=== PATIENT | male | born 1975 | race Caucasian/White ===

== ENCOUNTER 2017-09-28 07:38 | Outpatient (CLI) | payer OTHER ==
[2017-09-28] MEDS ORDERED: ISOVUE-370 76%-LOCM 1 ML ONE (16:37)
== END 2017-09-28 07:39 | disposition home or self-care (01) ==
LOC: BICCT 07:38
PROVIDERS: ATTEND Internal Medicine Hematology & Oncology
DX: C20 Malignant neoplasm of rectum (principal); C78.00 Secondary malignant neoplasm of unspecified lung; K76.9 Liver disease, unspecified; I70.90 Unspecified atherosclerosis; K21.9 Gastro-esophageal reflux disease without esophagitis
CPT/HCPCS: 71260; 74177

== ENCOUNTER → 2017-10-04 | Day surgery (SDC) | payer OTHER ==
[2017-10-03 09:16] VITALS: BMI 32.5
[~2017-10-04] MED LIST: Bupivacaine/Epinephrine 0.25% 30 ML VIAL ONE; CEFAZOLIN/Water 2 GM/20 ML SYRINGE ONE; Fentanyl 100 MCG/2 ML VIAL ONE; Lidocaine 2% 10 ML INJ ONE; Midazolam HCl 2 mg/2 ml Vial ONE; Propofol 500 MG/50 ML VIAL ONE
--- NOTE | 2017-10-04 11:13 | OP ---
DATE OF PROCEDURE: 10/04/2017 PREOPERATIVE DIAGNOSIS: Locally invasive rectal cancer. POSTOPERATIVE DIAGNOSIS: Locally invasive rectal cancer. PROCEDURE: Tunneled central line subcutaneous port (MediPort), CT injectable. SURGEON: Aayush Lindsey M.D. ANESTHESIA: General. ESTIMATED BLOOD LOSS: Minimal. COMPLICATIONS: None. SPECIMEN: None. FINDINGS: Tip of catheter is at atriocaval junction. TECHNIQUE: The patient was taken to the operating room, placed supine on the table. After general a nesthetic was obtained, the bilateral chest and neck is prepped and draped in a sterile fashion. Loc al anesthetic infiltrated over the right internal jugular vein. Intrajugular vein cannulated using a 22-gauge finder needle followed by a Seldinger needle. Wire was passed under fluoroscopy guidance i nto the superior vena cava. A small isaiah was made at the ____ site. A separate 3-cm incision is mad e in the right upper chest. Subcutaneous pocket made below the lower incision. Tubing for the MediP ort tunneled from the inferior to the superior incision and suture sheath was placed over the wire in to the superior vena cava. The dilator and wire removed. The EndoCatch threaded into the sheath and the sheath is peeled away, the tip of the catheter is at the atriocaval junction. MediPort tubing i s cut to fit the MediPort at the lower incision, connected to the MediPort which is sewn to the chest wall in the subcutaneous pocket using Prolene suture. MediPort flushes and draws blood without diff iculties flushed with a heparin flush. All incisions were irrigated and closed using 3-0 Monocryl, 4 -0 Monocryl, and Dermabond. The patient was en route to recovery in stable condition. All instrumen t counts, needle counts and lap counts were correct.
--- NOTE | 2017-10-04 12:05 | RAD ---
PORTABLE CHEST 1 VIEW: Date: 10/04/17 Time: 1102 hours HISTORY: MediPort placement. FINDINGS/IMPRESSION: Comparison made with exam of 09/01/13. The heart size is normal. There is a right internal jugular Port-A-Cath with tip in the projection of the SVC. The lungs are well expanded with lobar consolidation, pneumothoraces, or pleural effusions. POS: [facility]
== END ==
LOC: SDC 08:06
PROVIDERS: ATTEND Surgery
PROC: 02HV33Z Insertion of Infusion Device into Superior Vena Cava, Percutaneous Approach (ICD-10-PCS; principal; 2017-10-04)
PROC: B518YZA Fluoroscopy of Superior Vena Cava using Other Contrast, Guidance (ICD-10-PCS; principal; 2017-10-04)
PROC: 0JH60WZ Insertion of Totally Implantable Vascular Access Device into Chest Subcutaneous Tissue and Fascia, Open Approach (ICD-10-PCS; principal; 2017-10-04)
DX: C20 Malignant neoplasm of rectum (principal); F17.210 Nicotine dependence, cigarettes, uncomplicated; Z79.899 Other long term (current) drug therapy
CPT/HCPCS: 71045; J1642; J2250; J2704; J3010

== ENCOUNTER 2018-01-24 08:00 | Inpatient (IN) | payer OTHER ==
[2018-01-31] MEDS ORDERED: cefOXitin 2 GM VIAL ONE (06:53)
[2018-01-31] MEDS ORDERED: Sodium Chloride 0.9% 100 ML ONE (06:54)
[2018-01-31] MEDS ORDERED: Indocyanine Green 25 MG/10 ML VIAL ONE (07:04)
[2018-01-31] MEDS ORDERED: Fentanyl 100 MCG/2 ML VIAL ONE ×2 (07:04→07:29)
[2018-01-31] MEDS ORDERED: Midazolam HCl 2 mg/2 ml Vial ONE ×2 (07:04→07:24)
[2018-01-31] MEDS ORDERED: Bupivacaine/Epinephrine 0.25% 30 ML VIAL ONE (07:04)
[2018-01-31] MEDS ORDERED: Dexamethasone 4 mg/ml Vial ONE (07:11)
[2018-01-31] MEDS ORDERED: HYDROmorphone 2 MG/ML VIAL ONE (07:29)
[2018-01-31] MEDS ORDERED: Bupivacaine HCl 0.5%/Epinephrine 1:200,000/PF 30 ml Vial ONE (08:14)
[2018-01-31] MEDS ORDERED: Rocuronium Bromide 50 MG/5 ML VIAL ONE (10:26)
[2018-01-31] MEDS ORDERED: PHENYLEPHRINE-NS 100 MCG/ML 10 ML SYRINGE ONE (11:19)
[2018-01-31] MEDS ORDERED: Ondansetron HCl/PF 4 MG/2 ML Vial ONE (11:19)
[2018-01-31] MEDS ORDERED: Dexamethasone 20 MG/5 ML VIAL ONE (11:19)
[2018-01-31] MEDS ORDERED: Glycopyrrolate 0.2 MG/ML 5 ML SYRINGE ONE (11:19)
[2018-01-31] MEDS ORDERED: Metoprolol Tartrate 5 MG/5 ML VIAL ONE (11:19)
[2018-01-31] MEDS ORDERED: Lidocaine 1% PF 5 ML VIAL ONE (11:19)
[2018-01-31] MEDS ORDERED: PROPOFOL 200 MG/20 ML VIAL ONE (11:19)
[2018-01-31] MEDS ORDERED: ePHEDrine/0.9% NaCl/PF SYRINGE 50 mg/10 ml ONE (11:19)
[2018-01-31] MEDS ORDERED: PACU-Morphine 4MG/ML VIAL SLOW IVP PRN (11:30)
[2018-01-31] MEDS ORDERED: Ondansetron HCl/PF 4 MG/2 ML Vial IVP PRN ×2 (11:30→12:59)
[2018-01-31] MEDS ORDERED: Promethazine HCl 25 MG/ML VIAL IM PRN ×2 (11:30→12:59)
[2018-01-31] MEDS ORDERED: HYDROmorphone 2 MG/ML VIAL SLOW IVP PRN (11:30)
[2018-01-31] MEDS ORDERED: Promethazine HCl 25 MG/ML VIAL SLOW IVP PRN (11:30)
[2018-01-31] MEDS ORDERED: D5 1/2 NS w/20 mEq KCL 1,000 ML ONE (12:17)
[2018-01-31] MEDS ORDERED: hydrALAZINE 20 MG/ML VIAL SLOW IVP PRN (12:59)
[2018-01-31] MEDS ORDERED: Fentanyl 100 MCG/2 ML VIAL SLOW IVP PRN (12:59)
[2018-01-31 13:39] VITALS: BMI 31.1
[2018-01-31] MEDS ORDERED: cefOXitin 2 GM in Sodium Chloride 0.9% 100 ML IVPB SCH (14:00)
[2018-01-31] MEDS: Fentanyl 100 MCG/2 ML VIAL SLOW IVP PRN ×3 (16:00→20:37)
[2018-01-31] MEDS: cefOXitin 2 GM in Sodium Chloride 0.9% 100 ML IVPB SCH (16:01)
[2018-01-31] MEDS: D5 1/2 NS w/20 mEq KCL 1,000 ML IV SCH (18:22)
[2018-01-31] MEDS: Acetaminophen 1,000 MG in Premix Bag 1 BAG IVPB SCH (18:22)
[2018-01-31] MEDS: Enoxaparin Sodium 40 MG/0.4 ML SYRINGE SC SCH (20:39)
[2018-01-31] MEDS: Famotidine/PF 20 mg/2ml Vial SLOW IVP SCH (20:40)
[2018-01-31] MEDS: Famotidine 20 MG TAB PO SCH (20:51)
[2018-02-01] MEDS: Acetaminophen 1,000 MG in Premix Bag 1 BAG IVPB SCH ×3 (00:24→11:17)
[2018-02-01] MEDS: cefOXitin 2 GM in Sodium Chloride 0.9% 100 ML IVPB SCH (00:26)
[2018-02-01] MEDS: D5 1/2 NS w/20 mEq KCL 1,000 ML IV SCH ×2 (01:45→08:36)
[2018-02-01] MEDS: Fentanyl 100 MCG/2 ML VIAL SLOW IVP PRN ×3 (04:08→11:59)
[2018-02-01 05:18] LABS: #Lymphocytes 0.6 thou/uL (1.20-3.40); #Monocytes 0.7 thou/uL (0.11-0.59); #Neutrophils 8.9 thou/uL (1.40-6.50); %Basophils 0.2 % (0.0-1.0); %Eosinophils 0.2 % (0.0-10.0); %Lymphocytes 5.5 % (21.0-51.0); %Monocytes 6.6 % (0.0-10.0); %Neutrophils 87.5 % (42.0-75.0); Mean Corpuscular HGB CONC 31.3 g/dL (32.0-36.0); Mean Corpuscular Hemoglobin 28.7 pg (27.0-31.0); Mean Corpuscular Volume 91.7 fL (78.0-98.0); Mean Platelet Volume 7.9 fL (7.4-10.4); Platelet Count 239 thou/uL (130-400); RBC Distribution Width 15.8 % (11.5-14.5); Red Blood Cell (RBC) Count 4.16 mill/uL (4.70-6.10); White Blood Cell (WBC) Count 10.2 thou/uL (4.8-10.8)
[2018-02-01 05:36] LABS: Anion Gap 10 mmol/L (10-20); BUN (Urea Nitrogen) 7 mg/dL (8.9-20.6); Calc. Creatinine Clearance 160 mL/min (70-130); Calcium 9.1 mg/dL (7.8-10.44); Carbon Dioxide 27 mmol/L (22-29); Chloride 103 mmol/L (98-107); Estimated GFR-MDRD Greater than 90; Glucose 113 mg/dL (70-105); Sodium 136 mmol/L (136-145)
--- NOTE | 2018-02-01 07:06 | OP ---
DATE OF PROCEDURE: 01/31/2018 PREOPERATIVE DIAGNOSIS: Rectal cancer, status post neoadjuvant radiation. POSTOPERATIVE DIAGNOSIS: Rectal cancer, status post neoadjuvant radiation. PROCEDURE: 1. Da Surinder laparoscopic low anterior resection with low pelvic anastomosis. 2. Diverting loop ileostomy. 3. Laparoscopic mobilization of splenic flexure. SURGEON: Aayush Lindsey M.D. ANESTHESIA: General. ESTIMATED BLOOD LOSS: 50 mL. COMPLICATIONS: None. INDICATION: The patient is a 42-year-old male who presents with a history of bleeding per rectum, fo und to have rectal cancer 4 cm from the anal verge. Metastatic workup revealed metastatic disease. The patient had minimal obstructive symptoms. He saw Oncology, had MediPort placed. He has undergon e neoadjuvant chemoradiation. His bleeding has resolved. He presents for definitive rectal surgery. He underwent mechanical and antibiotic bowel prep. TECHNIQUE: The patient was taken to the operating room and placed supine on the table. After genera l anesthetic was obtained, he was placed in lithotomy position. A Everett was placed. His perineum an d abdomen were prepped and draped in a sterile fashion. Left subcostal 5-mm Optiview trocar was plac ed in the usual fashion and high-flow pneumoperitoneum was obtained. Right lower quadrant 15 mm robo t stapler port as well as a right upper quadrant 8 mm robot port were placed. The camera port was pl aced just to the right of the umbilicus, left-sided abdominal 8 mm robot port was placed as well. e surgeon goes to the console. All ports are docked to the robot. On the medial aspect of the sigmo id colon the mesentery was incised. The peritoneum is taken down in a medial to lateral rotation is performed exposing the left ureter, which was excluded from the dissection. The inferior mesenteric artery was taken at its base using the vessel sealer. Vessel sealer was then used to march down into the mesorectal plane posterior to the rectosigmoid junction, mobilization of the splenic flexure was performed in usual fashion to allow for the upper colon to reach down into the pelvis. Circumferent ial dissection of the rectum was performed in the mesorectal plane. There was a large bulky persiste nt tumor, distal to this the perirectal fat tissues were softer. At the junction of the lower 1/3 an d mid third of the rectum the rectum was dissected free from all surrounding structures. A robot sta pler was fired across the rectum at this level. Digital rectal exam then performed and shows this to be below the mass. No residual tumor was felt to be present. Muscle splitting incision is made in the left lower quadrant. The [place] wound retractor was placed. The proximal colon was able to be b rought out and the area had been marked using cautery on the antimesenteric surface of the colon afte r ICG green dye was given to assess for viability. In this area a colotomy was made. The anvil was passed proximally, its sharp pin brought out on antimesenteric surface of the colon. The colon was u sed to staple off the specimen distal to this. The specimen was opened on the back table to reveal g rossly that there was no tumor present at distal margin. Distal margin marked with silk suture. The proximal colon dropped back into the abdomen. The [place] wound retractor was twisted to reinsufflat e, the upper colon was able to be brought down in the pelvis under no tension. The base for the 33 s tapler was brought up through the anus and its sharp pin brought on the antimesenteric surface of the rectum below connected to the pin from above and the anastomosis was made by firing the stapler with in the green zone. The distal-most ring of tissue was sent as final distal margin. There was no ten joshua on the anastomosis. There is no bleeding in the abdomen. Ellipse of skin was brought out in th e right lower quadrant in the area of loop ileostomy and a Tobias was placed through a small hole ma de through a muscle splitting incision in the right lower quadrant and a loop of the distal ileum was able to be brought up under no tension. GraNee needle 0 Vicryl ties used to close the stapler port. All ports were removed under direct visualization. Pneumoperitoneum was let down. The muscle spli tting incision in the left lower quadrant was closed anterior and posterior fascia using PDS suture. The wound is irrigated. The wound was closed using 3-0 Vicryl, 4-0 Monocryl, and Dermabond. The ot her incisions were closed using 4-0 Monocryl and Dermabond. The ileostomy was then matured in usual fashion using 3-0 Vicryl. An ostomy devices placed. The patient is en route to recovery in stable c ondition. All instrument counts, needle counts, and lap counts were correct.
[2018-02-01] MEDS: Famotidine/PF 20 mg/2ml Vial SLOW IVP SCH ×2 (08:36→21:08)
[2018-02-01] MEDS: Famotidine 20 MG TAB PO SCH ×2 (08:36→21:09)
--- NOTE | 2018-02-01 12:16 | PDOC.GSPN ---
Surgery Progress Note: Subj - Subjective Narrative: Linda clears. Pain controlled Surgery Progress Note: Obj - Vital signs Vital signs: Vital Signs - Most Recent Temp Pulse Resp BP Pulse Ox 98.3 F 62 15 136/85 97 02/01/18 11:57 02/01/18 11:57 02/01/18 11:57 02/01/18 11:57 02/01/18 11:57 - Physical Exam General: no distress Cardiovascular: regular rate and rhythm Respiratory: clear to auscultation Wound: healing well (ostomy already with stool) Surgery Progress Note: Results - Labs Result Diagrams: 02/01/18 04:53 02/01/18 04:53 Lab results: Laboratory Results - last 24 hr 02/01/18 02/01/18 04:53 04:53 WBC 10.2 RBC 4.16 L Hgb 12.0 L Hct 38.2 L MCV 91.7 MCH 28.7 MCHC 31.3 L RDW 15.8 H Plt Count 239 MPV 7.9 Neutrophils % 87.5 H Lymphocytes % 5.5 L Monocytes % 6.6 Eosinophils % 0.2 Basophils % 0.2 Neutrophils # 8.9 H Lymphocytes # 0.6 L Monocytes # 0.7 H Eosinophils # 0.0 Basophils # 0.0 Sodium 136 Potassium 4.0 Chloride 103 Carbon Dioxide 27 Anion Gap 10 BUN 7 L Creatinine 0.80 Estimated GFR (MDRD) Greater than 90 Glucose 113 H Calcium 9.1 Surgery Progress Note: A/P - Problem (1) Rectal cancer Current Visit: Yes Code(s): C20 - MALIGNANT NEOPLASM OF RECTUM Status: Acute - Plan Plan: POD 1 LAR -full liquids today -DC [place] in am -home tomorrow if doing well -Rubia already called into [facility]
[2018-02-01] MEDS ORDERED: D5 1/2 NS w/20 mEq KCL 1,000 ML IV SCH (12:17)
[2018-02-01] MEDS ORDERED: HYDROcodone/Acetaminophen 7.5/325 mg Tablet PO PRN (12:17)
[2018-02-01] MEDS: HYDROcodone/Acetaminophen 7.5/325 mg Tablet PO PRN ×2 (15:04→18:34)
[2018-02-01] MEDS: Enoxaparin Sodium 40 MG/0.4 ML SYRINGE SC SCH (21:09)
[2018-02-02 04:27] VITALS: BP 145/91; TEMP 98.4
[2018-02-02] MEDS: HYDROcodone/Acetaminophen 7.5/325 mg Tablet PO PRN ×2 (04:30→08:30)
[2018-02-02] MEDS: Famotidine 20 MG TAB PO SCH (08:27)
[2018-02-02] MEDS: Famotidine/PF 20 mg/2ml Vial SLOW IVP SCH (08:27)
--- NOTE | 2018-02-02 15:34 | DIS ---
DISCHARGE DIAGNOSIS: Rectal cancer. PROCEDURES DURING ADMISSION: Laparoscopic robotic-assisted low anterior resection. HOSPITAL COURSE: The patient was admitted, taken to the operating room where he underwent a low ante rior resection. He had a primary anastomosis, but a diverting loop ileostomy. He has been given ins truction as to carry. He feels comfortable with that. He is tolerating full liquids well. He feels fine. His pain is minimal. He is discharged home on hydrocodone and Zofran and follow up with Dr. Lindsey in 2 weeks.
== END 2018-02-02 11:42 | disposition home or self-care (01) | DRG 331 ==
LOC: SURG A 01-31 05:59
PROVIDERS: ADMIT Surgery; ATTEND Surgery
PROC: 0DTP4ZZ Resection of Rectum, Percutaneous Endoscopic Approach (ICD-10-PCS; principal; 2018-01-31)
PROC: 0D1B4Z4 Bypass Ileum to Cutaneous, Percutaneous Endoscopic Approach (ICD-10-PCS; 2018-01-31)
PROC: 8E0W4CZ Robotic Assisted Procedure of Trunk Region, Percutaneous Endoscopic Approach (ICD-10-PCS; 2018-01-31)
DX: C20 Malignant neoplasm of rectum (principal); Z79.899 Other long term (current) drug therapy
CPT/HCPCS: 36415; 36416; 80048; 85025; 88305; 88309; 88313; J0131; J0670; J0694; J1100; J1170; J1650; J2001; J2250; J2405; J2704; J3010; J7050; S0028

== ENCOUNTER 2018-01-24 08:45 | Outpatient (CLI) | payer OTHER ==
[2018-01-24 09:19] LABS: #Eosinphils 0.1 thou/uL (0.0-0.7); #Lymphocytes 0.6 thou/uL (1.20-3.40); #Monocytes 0.4 thou/uL (0.11-0.59); #Neutrophils 4.1 thou/uL (1.40-6.50); %Basophils 0.4 % (0.0-1.0); %Eosinophils 1.8 % (0.0-10.0); %Lymphocytes 11.2 % (21.0-51.0); %Monocytes 7.5 % (0.0-10.0); %Neutrophils 79.1 % (42.0-75.0); Hemoglobin 13.2 g/dL (14.0-18.0); Mean Corpuscular HGB CONC 32.5 g/dL (32.0-36.0); Mean Corpuscular Hemoglobin 29.6 pg (27.0-31.0); Mean Platelet Volume 7.6 fL (7.4-10.4); Platelet Count 237 thou/uL (130-400); Red Blood Cell (RBC) Count 4.47 mill/uL (4.70-6.10); White Blood Cell (WBC) Count 5.2 thou/uL (4.8-10.8)
[2018-01-24 09:35] LABS: Hemoglobin A1c 5.7 % (4.0-6.0)
[2018-01-24 09:49] LABS: Anion Gap 12 mmol/L (10-20); BUN (Urea Nitrogen) 8 mg/dL (8.9-20.6); Calc. Creatinine Clearance 0 mL/min (70-130); Calcium 9.3 mg/dL (7.8-10.44); Carbon Dioxide 28 mmol/L (22-29); Chloride 102 mmol/L (98-107); Estimated GFR-MDRD Greater than 90; Glucose 101 mg/dL (70-105); Potassium 3.9 mmol/L (3.5-5.1); Sodium 138 mmol/L (136-145)
== END 2018-01-24 08:46 | disposition home or self-care (01) ==
LOC: LABBT 08:45
PROVIDERS: ATTEND Surgery
DX: Z01.812 Encounter for preprocedural laboratory examination (principal); C20 Malignant neoplasm of rectum
CPT/HCPCS: 80048; 83036; 85025; 93005; 93010

== ENCOUNTER 2018-02-19 08:04 | Outpatient (CLI) | payer OTHER ==
--- NOTE | 2018-02-19 11:17 | CT ---
CT CHEST WITH IV CONTRAST; CT ABDOMEN WITH IV CONTRAST: CT PELVIS WITH IV CONTRAST: HISTORY: Rectal cancer. The patient had chemotherapy and surgery. COMPARISON: 09/28/2017 FINDINGS: There are numerous bilateral pulmonary nodules, increased in number since the last exam. Some of the nodules demonstrate cavitation. No pleural or pericardial effusions are seen. No mediastinal, nerissa r, or axillary lymphadenopathy is identified. There are old right-sided rib fractures. There is an 8 mm, well circumscribed, low density lesion in the region of the heterogeneous, 1.6 cm l esion in the lateral dome of the right lobe of the liver since the last exam. Cysts in the kidneys a re again seen. The spleen, pancreas, and adrenal glands are normal. No calcified gallstones are not ed. No free air, free fluid, or lymphadenopathy is seen in the abdomen or pelvis. There are postop mann es in the region of the rectosigmoid with a small amount of fluid, which may represent a seroma. Int erval changes of right lower quadrant ileostomy are seen. There are vascular calcifications without evidence of aneurysmal dilatation of the thoracoabdominal a preston. No osteolytic or osteoblastic lesions are seen. IMPRESSION: Interval worsening of pulmonary metastases since 09/28/2017. POS: [facility]
[2018-02-19] MEDS ORDERED: ISOVUE-370 76%-LOCM 1 ML ONE (15:50)
== END 2018-02-19 08:05 | disposition home or self-care (01) ==
LOC: BICCT 08:04
PROVIDERS: ATTEND Internal Medicine Hematology & Oncology
DX: C20 Malignant neoplasm of rectum (principal)
CPT/HCPCS: 71260; 74177

== ENCOUNTER 2018-03-13 09:53 | Outpatient (CLI) | payer OTHER ==
--- NOTE | 2018-03-13 13:43 | RAD ---
SINGLE CONTRAST GASTROGRAFIN ENEMA: CLINICAL HISTORY: Ileostomy dysfunction. History of prior partial bowel resection. FINDINGS: A single contrast Gastrografin enema was performed with low pressure retrograde instillation of contr ast into the colon. There are scattered colonic diverticula. There is a focal area of redundancy of the colonic mucosa involving the low sigmoid colon. Contrast traverses the entirety of the colon an d opacifies a normal-caliber appendix and a portion of the terminal ileum. A majority of the left he micolon remains at least partially contracted throughout the duration of the exam which does limit as sessment. IMPRESSION: 1. Single contrast enema which opacifies the colon in its entirety as well as a normal-caliber appen jewel and a portion of the terminal ileum. 2. Scattered colonic diverticula. 3. Persistent focal outpouching which may relate to postoperative redundancy of distal sigmoid colon ic mucosa. Correlate with surgical history. POS: [facility]
== END 2018-03-13 09:54 | disposition home or self-care (01) ==
LOC: RAD 09:53
PROVIDERS: ATTEND Surgery
DX: K94.13 Enterostomy malfunction (principal); K57.30 Diverticulosis of large intestine without perforation or abscess without bleeding; Z98.890 Other specified postprocedural states
CPT/HCPCS: 74270

== ENCOUNTER 2018-03-22 08:57 | Outpatient (CLI) | payer OTHER ==
[2018-03-22 10:13] LABS: Anion Gap 13 mmol/L (10-20); BUN (Urea Nitrogen) 6 mg/dL (8.9-20.6); Calc. Creatinine Clearance 0 mL/min (70-130); Calcium 9.1 mg/dL (7.8-10.44); Carbon Dioxide 26 mmol/L (22-29); Chloride 105 mmol/L (98-107); Estimated GFR-MDRD Greater than 90; Glucose 92 mg/dL (70-105); Potassium 4.2 mmol/L (3.5-5.1); Sodium 140 mmol/L (136-145)
[2018-03-22 10:16] LABS: #Eosinphils 0.2 thou/uL (0.0-0.7); #Lymphocytes 0.7 thou/uL (1.20-3.40); #Monocytes 0.5 thou/uL (0.11-0.59); #Neutrophils 3.7 thou/uL (1.40-6.50); %Basophils 0.4 % (0.0-1.0); %Eosinophils 3.1 % (0.0-10.0); %Lymphocytes 14.4 % (21.0-51.0); %Monocytes 8.8 % (0.0-10.0); %Neutrophils 73.4 % (42.0-75.0); Hemoglobin 14.3 g/dL (14.0-18.0); Mean Corpuscular HGB CONC 33.6 g/dL (32.0-36.0); Mean Corpuscular Hemoglobin 30.2 pg (27.0-31.0); Mean Corpuscular Volume 89.8 fL (78.0-98.0); Mean Platelet Volume 7.8 fL (7.4-10.4); Platelet Count 292 thou/uL (130-400); RBC Distribution Width 15.4 % (11.5-14.5); Red Blood Cell (RBC) Count 4.75 mill/uL (4.70-6.10)
== END 2018-03-22 08:58 | disposition home or self-care (01) ==
LOC: LABBT 08:57
PROVIDERS: ATTEND Surgery
DX: Z01.812 Encounter for preprocedural laboratory examination (principal); C20 Malignant neoplasm of rectum
CPT/HCPCS: 80048; 85025

== ENCOUNTER 2018-03-22 09:00 | Inpatient (IN) | payer OTHER ==
[2018-03-22 09:21] VITALS: BMI 29.1
[2018-03-26] MEDS ORDERED: cefOXitin 2 GM in Sodium Chloride 0.9% 100 ML IVPB SCH (12:30)
[2018-03-26] MEDS ORDERED: Midazolam HCl 2 mg/2 ml Vial ONE (13:20)
[2018-03-26] MEDS ORDERED: Bupivacaine/Epinephrine 0.25% 30 ML VIAL ONE (13:27)
[2018-03-26] MEDS ORDERED: Fentanyl 100 MCG/2 ML VIAL ONE ×2 (13:32→16:07)
[2018-03-26] MEDS ORDERED: HYDROmorphone 2 MG/ML VIAL SLOW IVP PRN (15:01)
[2018-03-26] MEDS ORDERED: Meperidine HCl/PF 25 MG/ML VIAL SLOW IVP PRN (15:01)
[2018-03-26] MEDS ORDERED: Promethazine HCl 25 MG/ML VIAL SLOW IVP PRN (15:01)
[2018-03-26] MEDS ORDERED: Promethazine HCl 25 MG/ML VIAL IM PRN ×2 (15:01→16:54)
[2018-03-26] MEDS ORDERED: hydrALAZINE 20 MG/ML VIAL ONE (15:53)
[2018-03-26] MEDS ORDERED: Ondansetron PF 4 MG/2 ML Vial IVP PRN (16:54)
[2018-03-26] MEDS ORDERED: Ketorolac Tromethamine 30 MG/ML VIAL IVP PRN (16:54)
[2018-03-26] MEDS ORDERED: Fentanyl 100 MCG/2 ML VIAL SLOW IVP PRN ×2 (16:54)
[2018-03-26] MEDS ORDERED: hydrALAZINE 20 MG/ML VIAL SLOW IVP PRN (16:54)
[2018-03-26] MEDS ORDERED: PROPOFOL 200 MG/20 ML VIAL ONE (17:07)
[2018-03-26] MEDS ORDERED: Ondansetron PF 4 MG/2 ML Vial ONE (17:07)
[2018-03-26] MEDS ORDERED: Ketorolac Tromethamine 30 MG/ML VIAL ONE (17:07)
[2018-03-26] MEDS ORDERED: Dexamethasone 20 MG/5 ML VIAL ONE (17:07)
[2018-03-26] MEDS ORDERED: CEFAZOLIN 1 GM VIAL ONE (17:07)
[2018-03-26] MEDS ORDERED: Sterile Water 10 ML VIAL ONE (17:07)
[2018-03-26] MEDS ORDERED: Lidocaine 1% PF 5 ML VIAL ONE (17:07)
[2018-03-26] MEDS: D5 1/2 NS w/20 mEq KCL 1,000 ML IV SCH (18:30)
[2018-03-26] MEDS ORDERED: HYDROcodone/Acetaminophen 7.5/325 mg Tablet PO PRN (20:38)
[2018-03-26] MEDS: Famotidine 20 MG TAB PO SCH (20:43)
[2018-03-26] MEDS: Famotidine/PF 20 mg/2ml Vial SLOW IVP SCH (21:55)
[2018-03-26] MEDS ORDERED: Calcium Carbonate 500 MG ChewTAB PO PRN (22:11)
[2018-03-26] MEDS: cefOXitin Sodium 1 GM in Sodium Chloride 0.9% 100 ML IVPB SCH ×2 (22:25→23:23)
--- NOTE | 2018-03-26 22:54 | OP ---
DATE OF PROCEDURE: 03/26/2018 PREOPERATIVE DIAGNOSIS: Rectal cancer tension ileostomy. POSTOPERATIVE DIAGNOSIS: Rectal cancer tension ileostomy. PROCEDURE PERFORMED: Ileostomy reversal with small-bowel resection anastomosis. ANESTHESIA: General. ESTIMATED BLOOD LOSS: Minimal. COMPLICATION: None. SPECIMEN: None. TECHNIQUE: The patient was taken to the operating room and laid supine on the operating room table. After general anesthetic was obtained, the ostomy devices were removed and the loop ostomy was closed using a silk suture. The abdomen was then prepped and draped in a sterile fashion. The ileostomy mucosa was ellipsed out, dissected all the way down to its fascial opening. The fascia was entered carefully. The loop ileostomy was able to be brought up into the wound and no tension. All intraabdominal adhesions were taken down. JON 75 stapler was fired across just proximal and distal to the skin on the ostomy. The two ends were brought together in an antimesenteric fashion and [id number] anastomosis was performed using a JON 75. Common enterotomy was closed using a running Vicryl suture. The staple line was oversewn using silk suture. A crotch stitch was placed using silk suture. The anastomosis was placed back down the abdominal cavity. There was no ongoing bleeding. The posterior and anterior fascia were closed individually using PDS suture. The wound was irrigated copiously using sterile solution. The skin was closed in a pursestring of Prolene followed by [place] drain. Sterile dressings were placed. The patient was then returned to Recovery in stable condition. All instrument counts, needle counts, and lap counts are correct. Job ID: [id number]
[2018-03-26] MEDS: HYDROcodone/Acetaminophen 7.5/325 mg Tablet PO PRN (23:22)
[2018-03-27 06:27] LABS: #Lymphocytes 0.7 thou/uL (1.20-3.40); #Monocytes 0.6 thou/uL (0.11-0.59); #Neutrophils 8.1 thou/uL (1.40-6.50); %Basophils 0.1 % (0.0-1.0); %Eosinophils 0.1 % (0.0-10.0); %Lymphocytes 7.5 % (21.0-51.0); %Monocytes 5.9 % (0.0-10.0); %Neutrophils 86.5 % (42.0-75.0); Hemoglobin 12.5 g/dL (14.0-18.0); Mean Corpuscular HGB CONC 32.9 g/dL (32.0-36.0); Mean Corpuscular Hemoglobin 29.6 pg (27.0-31.0); Mean Corpuscular Volume 89.8 fL (78.0-98.0); Mean Platelet Volume 8.2 fL (7.4-10.4); Platelet Count 253 thou/uL (130-400); RBC Distribution Width 15.6 % (11.5-14.5); Red Blood Cell (RBC) Count 4.24 mill/uL (4.70-6.10); White Blood Cell (WBC) Count 9.3 thou/uL (4.8-10.8)
[2018-03-27 06:46] LABS: Anion Gap 11 mmol/L (10-20); BUN (Urea Nitrogen) 9 mg/dL (8.9-20.6); Calc. Creatinine Clearance 157 mL/min (70-130); Calcium 9.2 mg/dL (7.8-10.44); Carbon Dioxide 24 mmol/L (22-29); Chloride 105 mmol/L (98-107); Estimated GFR-MDRD Greater than 90; Glucose 108 mg/dL (70-105); Potassium 4.3 mmol/L (3.5-5.1); Sodium 136 mmol/L (136-145)
[2018-03-27] MEDS: D5 1/2 NS w/20 mEq KCL 1,000 ML IV SCH (08:18)
[2018-03-27] MEDS: Famotidine 20 MG TAB PO SCH ×2 (08:18→20:41)
[2018-03-27] MEDS: HYDROcodone/Acetaminophen 7.5/325 mg Tablet PO PRN ×3 (08:18→18:58)
[2018-03-27] MEDS: Famotidine/PF 20 mg/2ml Vial SLOW IVP SCH ×2 (08:20→20:42)
--- NOTE | 2018-03-27 14:36 | PRG ---
DATE OF SERVICE: 03/27/2018 Postop day #1 ileostomy reversal. SUBJECTIVE: Mr. Ibarra is doing well. He is not passing gas. He said he has mild bloating. He is tolerating the clear liquids. OBJECTIVE: VITAL SIGNS: He is afebrile and his vital signs are stable. ABDOMEN: Soft, minimally distended. Occasional bowel sounds. Wounds in the right lower quadrant intact. ASSESSMENT: Postoperative day #1 ileostomy reversal. PLAN: Hep-Lock IV, full liquid diet, likely home tomorrow. Job ID: [id number]
[2018-03-28] MEDS: HYDROcodone/Acetaminophen 7.5/325 mg Tablet PO PRN ×2 (02:19→08:58)
[2018-03-28 08:17] VITALS: BP 156/96; TEMP 98.1
[2018-03-28] MEDS: Famotidine 20 MG TAB PO SCH (08:58)
[2018-03-28] MEDS: Famotidine/PF 20 mg/2ml Vial SLOW IVP SCH (09:05)
--- NOTE | 2018-03-28 15:10 | DIS ---
DATE OF ADMISSION: 03/26/2018 DATE OF DISCHARGE: 03/28/2018 ADMIT DIAGNOSES: Rectal adenocarcinoma, attention to ileostomy. DISCHARGE DIAGNOSES: Rectal adenocarcinoma, attention to ileostomy. PROCEDURE: Ileostomy reversal by Dr. Lindsey without complication. CONDITION ON DISCHARGE: Improved. STAFF: Dr. Lindsey. HOSPITAL COURSE: On postop day #2, the patient is tolerating full liquid diet. He is passing gas. No bloating. His Sandeep is removed, and 4x4s and tape were placed over the exit site. He will keep this covered with 4x4s when he goes home. It is okay to shower. Follow up with me in 2 weeks. Job ID: [id number]
== END 2018-03-28 10:08 | disposition home or self-care (01) | DRG 331 ==
LOC: SURG A 03-26 12:01
PROVIDERS: ADMIT Surgery; ATTEND Surgery
PROC: 0DBB0ZZ Excision of Ileum, Open Approach (ICD-10-PCS; principal; 2018-03-26)
DX: Z43.2 Encounter for attention to ileostomy (principal); Z85.048 Personal history of other malignant neoplasm of rectum, rectosigmoid junction, and anus
CPT/HCPCS: 36415; 80048; 85025; A4216; J0360; J0690; J0694; J1100; J1885; J2001; J2250; J2405; J2704; J3010; J7050

== ENCOUNTER 2018-08-09 08:33 | Outpatient (CLI) | payer OTHER ==
--- NOTE | 2018-08-09 09:58 | CT ---
CT of the chest, abdomen, and pelvis: 08/09/2018 COMPARISON: 02/19/2018 and 09/28/2017 HISTORY: Rectal cancer. Patient undergoing chemotherapy treatment currently. Colostomy reversal in De cember TECHNIQUE: Axial CT imaging at 5 mm intervals from thoracic inlet through pubic symphysis with intrav enous and oral contrast. Coronal reformatted imaging obtained. FINDINGS: Right-sided Port-A-Cath present. No axillary, mediastinal, or hilar lymphadenopathy noted. No pleural, pericardial, or mediastinal fluid. No pneumothorax noted on either side. There are numerous pulmonary nodules bilaterally. Within the left upper lobe, there are numerous pulm onary nodules, which appear decreased in number and decreased in size when compared to the 02/19/2018 examination. This includes a nodule on image 18 measuring 6 mm, which previously measured 1 .1 cm. There are numerous nodules within the left lower lobe, measuring up to approximately 7 mm on axial im age 27, many of the pulmonary nodules previously noted in the left lower lobe resolved and/or demonstrating interval decrease in size. There are multiple subcentimeter pulmonary nodules also noted within the right middle, right upper, a nd right lower lobes, decreased in size and number when compared to the 02/19/2018 examination. The largest and most numerous nodules within the right lung are noted within the right lower lobe, and me asure up to 1.2 cm, decreased from 1.7 cm on the prior examination. Review of the osseous structures of the chest demonstrates an old right clavicle fracture. There is n o worrisome lytic or blastic bone lesion noted within the chest. No free intraperitoneal air or fluid is present. There is a vague hypodensity within the right lobe of the liver on axial image 53, measuring approxim ately 6 mm, slightly less conspicuous than on the prior examination. This also appears less conspicuous on on the 09/28/2017 examination suggesting a metastatic lesion responding to therapy. No additional hepatic abnormality. The spleen, gallbladder, pancreas, adrenal glands, and kidneys dem onstrate no acute findings. Nonspecific wall thickening of a decompressed urinary bladder present. There is stranding of the presacral fat with associated hypodensity and ill-defined fluid attenuation which is less conspicuous than on the prior studies. No discrete mass lesion is seen in the presacral space and no discrete rectal wall thickening is seen at this point. There is no evidence fo r bowel obstruction. There is scattered atherosclerotic calcification of the abdominal aorta and its branches. No retroper itoneal, pelvic, or mesenteric lymphadenopathy. Osseous structures of abdomen/pelvis demonstrate no acute findings. IMPRESSION: Numerous bilateral pulmonary nodules consistent with metastatic disease. Since the most r ecent prior examination these pulmonary nodules have decreased in number and in size. There is also a subcentimeter hypodense lesion within the right lobe of the liver which has decreased in size. Find ings are consistent with interval response to therapy. Stranding of the presacral fat is felt to be related to prior treatment. No mass lesion is seen in this region. Continued follow-up advised.
[2018-08-09] MEDS ORDERED: ISOVUE-370 76%-LOCM 1 ML ONE (11:17)
== END 2018-08-09 08:34 | disposition home or self-care (01) ==
LOC: BICCT 08:33
PROVIDERS: ATTEND Internal Medicine Hematology & Oncology
DX: C20 Malignant neoplasm of rectum (principal); R91.8 Other nonspecific abnormal finding of lung field; K76.9 Liver disease, unspecified
CPT/HCPCS: 71260; 74177; Q9966

== ENCOUNTER 2018-11-15 08:32 | Outpatient (CLI) | payer OTHER ==
--- NOTE | 2018-11-15 11:25 | CT ---
CT chest with IV contrast CT abdomen and pelvis with IV contrast HISTORY: Rectal cancer. Restaging. COMPARISON: 08/09/2018. FINDINGS: Old healed fractures of the right clavicle and ribs. There are innumerable noncalcified nod ules throughout each lung that have increased in size and number since the previous study. On today's exam, the largest are in each lower lobe, measuring up to 1.4 cm greatest diameter on the rig ht and 1.2 cm on the left. Scattered predominantly peripheral areas of lung cysts are similar in appearance to the previous study. The low-density lesion within the right liver lobe on the prior exams is no longer visible. Cystic le joshua at the medial cortex of the left kidney with a tiny dependent calcification is unchanged in appearance. Stranding in the presacral fat from prior treatment is stable. No enlarged lymph nodes or free fluid are apparent. Calcification in the aorta and other arterial str uctures. Urinary bladder is decompressed. IMPRESSION: Interval worsening of metastatic disease of the lungs, with increase in size and number o f bilateral noncalcified nodules. Interval resolution of right liver lobe mass. Atherosclerosis
[2018-11-15] MEDS ORDERED: ISOVUE-370 76%-LOCM 1 ML ONE (13:32)
== END 2018-11-15 08:33 | disposition home or self-care (01) ==
LOC: BICCT 08:32
PROVIDERS: ATTEND Internal Medicine Hematology & Oncology
DX: C20 Malignant neoplasm of rectum (principal); C78.02 Secondary malignant neoplasm of left lung; C78.01 Secondary malignant neoplasm of right lung; I70.0 Atherosclerosis of aorta; R16.0 Hepatomegaly, not elsewhere classified; R91.8 Other nonspecific abnormal finding of lung field
CPT/HCPCS: 71260; 74177

== ENCOUNTER 2019-04-25 09:30 | Outpatient (CLI) | payer OTHER ==
--- NOTE | 2019-04-25 12:30 | CT ---
CT CHEST WITH IV CONTRAST CT ABDOMEN WITH IV CONTRAST CT PELVIS WITH IV CONTRAST: HISTORY: Rectal cancer with rising CEA. COMPARISON: 11/15/2018. FINDINGS: Numerous bilateral pulmonary nodules are again noted with interval increase in size and number. The largest nodule in the right upper lobe measures 1 cm, right middle lobe 1.5 cm, right lower lobe 2 cm , left upper lobe 1.3 cm, and left lower lobe 1.9 cm. Some of the lung nodules demonstrate cavitatio n. No mediastinal, hilar, axillary, or abdominopelvic lymphadenopathy is seen. No pleural or pericardial effusions are seen. The liver, spleen, pancreas, and adrenal glands are normal. Low-density lesions in the kidneys are s table. The small bowel loops are not abnormally dilated. Stranding in the presacral fat from previous treat ment is stable. Old healed fractures of the right clavicle and ribs are again seen. No osteolytic or osteoblastic le sions are identified. IMPRESSION: Interval worsening of pulmonary metastases since 11/15/2018. POS: [facility]
[2019-04-25] MEDS ORDERED: Iopamidol-370 76% 500 ML 1 ML ONE (15:22)
== END 2019-04-25 09:31 | disposition home or self-care (01) ==
LOC: BICCT 09:30
PROVIDERS: ATTEND Internal Medicine Hematology & Oncology
DX: C20 Malignant neoplasm of rectum (principal); R97.0 Elevated carcinoembryonic antigen [CEA]; C78.00 Secondary malignant neoplasm of unspecified lung
CPT/HCPCS: 71260; 74177; Q9967

== ENCOUNTER 2019-05-19 12:29 | Outpatient (CLI) | payer OTHER ==
--- NOTE | 2019-05-19 15:24 | ULT ---
TESTICULAR ULTRASOUND: INDICATION: Left sided testicular pain. COMPARISON: None. TECHNIQUE: Marie scale, color Doppler, with spectral Doppler images were obtained of the scrotum. FINDINGS: The right testicle measures 4.3 x 2.3 x 2.3 cm. There is normal flow seen in the right testicle. No intratesticular mass is evident. Visualized right epididymis is normal-appearing. The left testicle measures 4.7 x 2.7 x 3.5 cm and has diffuse internal edema. There is normal flow t o the left testicle. There is a small left hydrocele. Visualized epididymi demonstrate heterogeneou s appearance. There is a small testicular appendix seen off the superior pole of the left testicle. IMPRESSION: 1. Diffuse edematous change involving the left testicle with left-sided hydrocele is suspicious for left-sided orchitis. No definite intratesticular mass is evident. The left side epididymis is heter ogeneous but does not demonstrate increased vascular flow. Component of a left-sided epididymitis is not excluded. Recommend appropriate therapy and followup ultrasound images to document clearance. 2. Normal sonographic appearance of the right testicle. POS: [facility]
== END 2019-05-19 12:30 | disposition home or self-care (01) ==
LOC: BICULT 12:29
PROVIDERS: ATTEND Internal Medicine Hematology & Oncology
DX: N50.89 Other specified disorders of the male genital organs (principal); C20 Malignant neoplasm of rectum; N43.3 Hydrocele, unspecified; N44.8 Other noninflammatory disorders of the testis
CPT/HCPCS: 76870; 93976

== ENCOUNTER 2019-08-22 10:28 | Outpatient (CLI) | payer OTHER ==
[~2019-08-22 10:28] MED LIST changes: -Bupivacaine/Epinephrine 0.25% 30 ML VIAL ONE; -CEFAZOLIN/Water 2 GM/20 ML SYRINGE ONE; -Fentanyl 100 MCG/2 ML VIAL ONE; +Iopamidol-370 76% 500 ML 1 ML ONE; -Lidocaine 2% 10 ML INJ ONE; -Midazolam HCl 2 mg/2 ml Vial ONE; -Propofol 500 MG/50 ML VIAL ONE
--- NOTE | 2019-08-22 13:06 | CT ---
CT CHEST WITH IV CONTRAST: 08/22/19 INDICATIONS: Rectal cancer. Pulmonary metastasis. Currently on chemo. Comparison made to CT chest 04/25/19. FINDINGS: Numerous bilateral pulmonary nodules are again noted. Many of these nodules show cavitation. There mack s been increase in the size and number of these nodules when compared to prior exam. Some representat zoe changes are described. In the left upper lobe, there is a nodule which measures 1.5 cm today. This nodule previously measure d 1.4 cm. There is a nodule in the anterior left upper lobe which was previously measured at 1.3 cm. This nodule today measures 2.0 cm. There is a nodule in the posterior aspect of the left lower lobe, superior segment which was previous ly measured at 1.8 cm AP dimension. This nodule today measures up to 2.6 cm. There is a nodule in the peripheral left lower lobe which abuts the pleural surface which measures 2.1 cm today. This nodule previously measured 1.2 cm. The right upper lobe, there is an enlarging nodule today which measures 1.7 cm. Previously, there we re two adjacent nodules each measuring in the 5 mm range. This is now one coalescing nodular mass. Th ere is an enlarging nodule in the right mid lung which was measured previously at 1.0 cm. Today, it m easures 2.0 cm. There are enlarging nodules in the posterior right lower lobe one of which measures 2.8 cm width toda y whereas it previously measured approximately 2.0 cm. There are numerous other enlarging nodules seen bilaterally. There also appears to be increased numbe r of overall nodules. Nonspecific mediastinal and hilar lymph nodes appear stable. Images through the upper abdomen unremar kable. Spleen is upper normal size. Osseous structures unremarkable. IMPRESSION: Increase in number and size of pulmonary nodules when compared to prior exam. POS: [facility]
== END 2019-08-22 10:29 | disposition home or self-care (01) ==
LOC: BICCT 10:28
PROVIDERS: ATTEND Internal Medicine Hematology & Oncology
DX: C20 Malignant neoplasm of rectum (principal); C78.00 Secondary malignant neoplasm of unspecified lung; R91.8 Other nonspecific abnormal finding of lung field
CPT/HCPCS: 71260; Q9967

== ENCOUNTER 2019-12-18 09:02 | Outpatient (CLI) | payer OTHER ==
--- NOTE | 2019-12-18 10:14 | CT ---
CT THORAX WITH CONTRAST: DATE: 12/18/2019 HISTORY: 44-year-old male with pulmonary metastatic disease from rectal cancer. Evaluate response to chemother apy. COMPARISON: 08/22/2019 FINDINGS: Again noted is the very large number of noncalcified, irregularly marginated pulmonary nodules throug hout the bilateral upper lobes, lower lobes, and right middle lobe. Comparison of some of the previously described and measured nodules: Apicoposterior segment left upper lobe described as 1.5 cm: Previously 1.6 x 1.8 x 1.8 cm. Currently 1.4 x 1.8 x 2 cm. No major interval change. Anterior segment left upper lobe described as 2.0 cm: Previously 2 x 1.5 x 1.4 cm. Currently 1.8 x 1. 4 x 1.3 cm. Minimally smaller. Superior segment left lower lobe previously described as 2.6 cm: Previously 2.5 x 1.7 x 2.5 cm. Curre ntly 2.1 x 2 x 1.8 cm. Minimally smaller. Anterobasilar or lateral basilar segment left lower lobe abutting the lateral pleural surface previou sly described as 2.1 cm: Previously 2.1 x 1.9 x 2.0 cm. Currently 1.9 x 2.2 x 1.6 cm. Minimally smaller. Apical segment right upper lobe previously described as 1.7 cm: Previously 1.7 x 1.2 x 1.8 cm. Curren tly 1.8 x 1.2 x 1.7 cm. No major interval change. Slightly posterior lateral to this, there was a Right upper lobe previously described as mid lung 2 cm: Previously 1.8 x 1.8 x 1.7 cm. Currently 1.8 x 2 x 1.5 cm. No major interval change. Posterior aspect of right lower lobe near junction between superior and posterior basilar segments pr eviously described as 2.8 cm: Previously 2.9 x 2.1 x 2.7 cm. Currently 2.5 x 2.0 x 2.6 cm. Minimally smaller. No mediastinal or hilar lymphadenopathy. No pleural effusion or pneumothorax. Large number of pulmonary air cysts bilaterally. No thoracic aortic dissection or aneurysm. No pericardial effusion. IMPRESSION: very large number of pulmonary metastases. Minimal interval improvement.
[2019-12-18] MEDS ORDERED: Iopamidol-370 76% 500 ML 1 ML ONE (13:23)
== END 2019-12-18 09:03 | disposition home or self-care (01) ==
LOC: BICCT 09:02
PROVIDERS: ATTEND Internal Medicine Hematology & Oncology
DX: C20 Malignant neoplasm of rectum (principal); C78.00 Secondary malignant neoplasm of unspecified lung
CPT/HCPCS: 71260; Q9967

== ENCOUNTER 2020-04-06 08:51 | Outpatient (CLI) | payer OTHER ==
--- NOTE | 2020-04-06 10:49 | CT ---
CT OF THE THORAX WITH IV CONTRAST: INDICATION: History of rectal cancer with metastatic disease to the lungs. COMPARISON: Prior exam dated December 18, 2019. FINDINGS: Since the comparison examination, numerous scattered pulmonary nodules within the right and left lung s are largely stable. An index nodule within the left lung apex on image 21 of series 8 measures 1.7 x 1.5 cm where previou sly it measured 1.7 x 1.5 cm. Index nodule within the right lung apex previously measuring 18 x 12 mm now measures 18 x 11 mm. An index nodule within the superior segment left lower lobe is slightly larger measuring 29 x 24 mm w here previously it measured 20 x 21 mm. Additional index nodule within the left lower lobe previously measuring 22 x 19 mm now measures 22 x 17 mm. No pathologically enlarged lymph nodes are evident. There is scattered vascular calcification of the coronary arteries and thoracic aorta. There is a ri ght chest wall port in place. No axillary lymphadenopathy is evident. No pleural effusion is eviden t. The visualized upper abdomen demonstrates a mildly prominent portocaval lymph node measuring 1.1 cm which is stable. No definite acute osseous abnormality is evident. IMPRESSION: Largely stable pulmonary metastatic disease. One index nodule in the left lower lobe has intervally grown. POS: AH
[2020-04-06] MEDS ORDERED: Iopamidol-370 76% 500 ML 1 ML ONE (13:25)
== END 2020-04-06 08:52 | disposition home or self-care (01) ==
LOC: BICCT 08:51
PROVIDERS: ATTEND Internal Medicine Hematology & Oncology
DX: C78.00 Secondary malignant neoplasm of unspecified lung (principal); C20 Malignant neoplasm of rectum; R91.1 Solitary pulmonary nodule
CPT/HCPCS: 71260; Q9967

== ENCOUNTER 2020-06-29 09:25 | Outpatient (CLI) | payer OTHER ==
[2020-06-29] MEDS ORDERED: Iopamidol-370 76% 500 ML 1 ML ONE (11:23)
== END 2020-06-29 09:26 | disposition home or self-care (01) ==
LOC: BICCT 09:25
PROVIDERS: ATTEND Internal Medicine Hematology & Oncology
DX: C20 Malignant neoplasm of rectum (principal); C78.00 Secondary malignant neoplasm of unspecified lung; R91.8 Other nonspecific abnormal finding of lung field
CPT/HCPCS: 71260; Q9967

== ENCOUNTER 2020-09-22 07:43 | Outpatient (CLI) | payer OTHER ==
[2020-09-22] MEDS ORDERED: Iopamidol-370 76% 500 ML 1 ML ONE (10:17)
== END 2020-09-22 07:44 | disposition home or self-care (01) ==
LOC: BICCT 07:43
PROVIDERS: ATTEND Internal Medicine Hematology & Oncology
DX: C20 Malignant neoplasm of rectum (principal); C78.00 Secondary malignant neoplasm of unspecified lung; R91.8 Other nonspecific abnormal finding of lung field; K76.0 Fatty (change of) liver, not elsewhere classified; K57.30 Diverticulosis of large intestine without perforation or abscess without bleeding; N28.9 Disorder of kidney and ureter, unspecified; Z98.890 Other specified postprocedural states
CPT/HCPCS: 71260; 74177; Q9967